=== PATIENT | male | born 1960 | race Caucasian/White ===

== ENCOUNTER 2019-06-16 11:48 | Inpatient (IN) | payer BC, OTHER ==
[~2019-06-16] VITALS: Ht 175.3 cm; Wt 88.9 kg
[2019-06-16 12:09] VITALS: BP 137/95
--- NOTE | 2019-06-16 13:20 | NUR ---
ASSESSMENT: CM REVIEWED CHART AND MET WITH PATIENT AT THE BEDSIDE ALONG WITH HIS . PHYSICIAN CONTACTED CM PATIENT AND HAD QUESTIONS ABOUT INSURANCE. THEY HAD QUESTIONS ABOUT INSURANCE STATING PATIENT IS NEEDING A CT AND HE IS WORRIED HE WILL HAVE A LARGE BILL. CM REACHED OUT TO SHAGUFTA AT [facility] [phone] TO CLARIFY IF PATIENT WOULD BE CHARGED. PT STATED HE HAS MET HIS MAX OUT OF POCKET, SO SH[place] STATED PATIENT SHOULD NOT BE CHARGED IF PATIENT HAS MET THAT AND IT WILL BE COVERED. SHAGUFTA STATED TO GIVE PT HER NUMBER WITH ANY QUESTIONS. CM PROVIDED THIS TO PATIENT AND HIS . HE REPORTS HE LIVES IN AN APT WITH HIS DURING THE WEEK HERE AND THEN THEY HAVE A HOUSE THEY GO TO ON THE WEEKEND IN [place]. PT REPORTS THEY HAVE NO STEPS THEY HAVE TO USE TO GET IN THE APT. PT REPORTS HE AMBULATES INDEPENDENTLY. PT STATES HE IS INDEPENDENT WITH ADLS. PT REPORTS NO HX OF HH OR SNF. CM WILL CONTINUE TO FOLLOW TO ASSIST NEEDED.
[2019-06-16] MEDS ORDERED: ASPIR 8181 M1 PO (15:18)
[2019-06-16] MEDS ORDERED: CRESTOR10 MG PO (15:19)
[2019-06-16] MEDS ORDERED: AVAPRO 150 MG150 M1 PO ×2 (15:21→21:39)
[2019-06-16] MEDS ORDERED: VITAMIN B-121000 MC2 SUBLING (15:21)
[2019-06-16 15:41] VITALS: BP 126/80
[2019-06-16] MEDS ORDERED: XARELTO20 MG PO ×2 (15:56→21:38)
[2019-06-16] MEDS ORDERED: ZOFRAN8 MG PO (15:59)
[2019-06-16] MEDS ORDERED: NORCO 5-325 TA1 EAC2 PO (16:03)
[2019-06-16] MEDS ORDERED: TYLENOL325 M1 PO (16:05)
[2019-06-16 17:00] LABS: HEMATOCRIT 38.3 % (42.0-52.0); HEMOGLOBIN 12.6 gm/dL (14.0-18.0); MCH 30.5 pg (26.0-34.0); MCHC 33.1 g/dL (28.0-37.0); MCV 92.2 fL (80.0-100.0); RBC 4.15 mil/uL (4.50-6.00); RDW 13.1 % (10.5-14.5); WBC 10.9 thou/uL (4.0-11.0)
[2019-06-16 17:13] LABS: ALBUMIN 2.3 g/dL (3.4-5.0); CALCIUM 9.1 mg/dL (8.5-10.1); MAGNESIUM 1.9 mg/dL (1.8-2.4); POTASSIUM 4.1 mmol/L (3.5-5.1); TOTAL BILIRUBIN 0.5 mg/dL (<0.1-1.0); TOTAL PROTEIN 7.7 g/dL (6.4-8.2)
[2019-06-16 17:40] LABS: TSH 2.039 uIU/mL (0.358-3.740)
[2019-06-16 19:08] VITALS: BP 120/80
--- NOTE | 2019-06-16 19:52 | NUR ---
[age] OLD MALE ADMITTED TO WEST ROOM [address]ARE OF [address] AYALA. PT WAS A DIRECT ADMIT DUE TO C/O FEVER ON AND OFF FOR TEN DAYS. NO FEVER ON ADMIT. PT ALERT AND ORIENTED TIMES FOUR. VSS, SR ON TELE, IVF INFUSING PER ORDER. PT C/O PAIN RIGHT THIGH PRN PAIN MEDICATIONS GIVEN WITH GOOD RELEIF. PT TOLERATES MED AND MEALS. PT UP AB THAIS WITH STEADY GAIT. AT BEDSIDE. WILL CONTINUE TO MONITOR.
[2019-06-16] MEDS ORDERED: NORCO 10-325 T1 EACH PO (21:36)
[2019-06-16] MEDS ORDERED: LIDODERM1 EACH TOP (21:37)
[2019-06-16] MEDS ORDERED: ASA81BEC PO (21:41)
[2019-06-16] MEDS ORDERED: ROSUVASTATIN CA10 MG PO (21:41)
[2019-06-16] MEDS ORDERED: B-12 DOTS500 MCG PO (21:43)
[2019-06-17 04:29] VITALS: BP 113/76
[2019-06-17 05:08] LABS: GLYCOHEMOGLOBIN (HGB A1C) 7.1 % (4.8-5.6)
[2019-06-17 05:48] LABS: HEMATOCRIT 37.1 % (42.0-52.0); HEMOGLOBIN 12.4 gm/dL (14.0-18.0); MCH 30.9 pg (26.0-34.0); MCHC 33.4 g/dL (28.0-37.0); MCV 92.5 fL (80.0-100.0); RBC 4.01 mil/uL (4.50-6.00); RDW 13.1 % (10.5-14.5); WBC 9.4 thou/uL (4.0-11.0)
[2019-06-17 06:01] LABS: CALCIUM 9.2 mg/dL (8.5-10.1); MAGNESIUM 1.9 mg/dL (1.8-2.4); POTASSIUM 4.5 mmol/L (3.5-5.1)
--- NOTE | 2019-06-17 07:34 | NUR ---
patient is alert and oriented. patient is up ad rosario. patient is room air. temp treated with medication. patient is resting comfortably in bed. wcm. patient is progressing to goals
[2019-06-17 07:49] VITALS: BP 102/70
[2019-06-17 11:22] VITALS: BP 111/75
[2019-06-17 11:42] LABS: URINE BILIRUBIN NEGATIVE (Negative); URINE BLOOD NEGATIVE (Negative); URINE CLARITY CLEAR; URINE COLOR YELLOW; URINE GLUCOSE-RANDOM* NEGATIVE (Negative); URINE KETONES NEGATIVE (Negative); URINE LEUKOCYTES-REFLEX NEGATIVE (Negative); URINE NITRITE-REFLEX NEGATIVE (Negative); URINE PROTEIN (DIPSTICK) NEGATIVE (Negative); URINE UROBILINOGEN 0.2 E.U./dl (0.2-1.0)
[2019-06-17 15:53] VITALS: BP 110/58
[2019-06-17 19:50] VITALS: BP 121/82
--- NOTE | 2019-06-17 21:04 | HC ---
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 HISTORY OF PRESENT ILLNESS: A 58-year-old previously healthy diagnosed with DVT in December of this year, followed by mass in his right medial thigh. In March of this year, biopsy positive for spindle cell sarcoma. Started on preoperative radiation therapy 4 weeks ago. Over the last 10 days, he has had low-grade fever associated with night sweats. The patient has had a 10-day history of fever associated with night sweats, occasional chills. The patient has had cough for about 6 months. This has been nonproductive with occasional clear sputum. No hemoptysis, no pleuritic chest pain. No shortness of breath. He does have some postnasal drip. He has had mild nausea. No rashes, decubiti other than irritation from his radiation therapy involving the upper thigh and perianal region. He has had no adenopathy. Denies any headaches, pharyngitis symptoms, chest pain, palpitations, abdominal pain, diarrhea, dysuria, hematuria, flank pain, bleeding episodes despite being on Xarelto. He has had a previous left kidney stone, which obstructed his left ureter last year. During his evaluation, CT scan was performed and did note several nodules in his lower lung. These were evident again in March. He has lost about 25 pounds of weight. No HIV risk factors. No tuberculosis exposure. 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 He is . REVIEW OF SYSTEMS: A 10-point review of system was negative other than what has been described above. ALLERGIES: PENICILLIN, although does tolerate amoxicillin without reaction. MEDICATIONS: Aspirin, Crestor, vitamin B12, Avapro, Xarelto, Zofran, [place]. Since admission, he has been on vancomycin and cefepime. PAST MEDICAL HISTORY: Hypertension, nephrolithiasis, DVT, sarcoma right thigh. [address] [address] CONSULTATION Name: MARIAN TRISTAN Room #: 357-P [facility] IN [facility]#: [id number] Admission: 06/16/19 Attend Phys: Uday Thomas MD Discharge: Date of : 62 Report #: [id number] FAMILY HISTORY: Noncontributory. SOCIAL HISTORY: Nonsmoker, no significant alcohol intake. Other issues as noted above. PHYSICAL EXAMINATION: VITAL SIGNS: Maximum temperature was 38.6, hemodynamically stable. GENERAL: He is alert and cooperative, ambulatory. Mental status was normal. Mood normal. SKIN: Without rash except for what will be described in his extremity examination. No palpable adenopathy. EYES: Without scleral icterus. MOUTH: Without mucositis. NECK: Supple. No thyromegaly or mass. LUNGS: Clear. HEART: Regular, without murmur. ABDOMEN: Soft, nontender, no hepatosplenomegaly or mass. No spinal tenderness, no CVA tenderness. GENITOURINARY: External genitalia unremarkable. Perianal examination with dermatitis. RECTAL: Mildly enlarged prostate. No masses or fluctuance identified. EXTREMITIES: With mass in his right thigh. No associated erythema, cellulitis lesion. NEUROLOGIC: Cranial nerves intact. Strength in his upper and lower extremities normal. Deep tendon reflexes normal. Sensation to touch upper and lower extremities within normal limits. LABORATORY STUDIES: Lactate 0.9. Procalcitonin 0.2. Hemoglobin 12.6, WBC 10.9, platelet count 423,000. Sodium 131, potassium 4.1, bicarbonate 29, creatinine 1, AST 67, ALT 156, alkaline phosphatase 152, bilirubin 0.5, lipase 178. TSH 2. CT scan of the chest with contrast, numerous pulmonary nodules throughout both lungs, most suggestive of pulmonary metastatic disease. No bony changes or adenopathy. CT scan of the abdomen and pelvis was unremarkable. Blood cultures are pending. IMPRESSION: Fever in the setting of right thigh sarcoma and bilateral pulmonary nodules with cough, weight loss. Additional findings include transaminase elevation. Source of fever I would suspect pulmonary over perianal region over hepatitis concerning that we may be dealing with metastatic cancer to the lung. Other considerations would be granulomatous disease. He has been on no chemotherapy to making neutropenic or otherwise immunosuppressed other than having cancer and beginning radiation therapy. Causes of hepatitis would include drug versus viral etiology. No evidence of metastatic disease or granulomatous changes seen [facility] [address] [place] [address] CONSULTATION Name: MARIAN TRISTAN Room #: 357-P [facility] IN Fitz.#: [id number] Admission: 06/16/19 Attend Phys: Uday Thomas MD Discharge: Date of : 62 Report #: [id number] scan. Would doubt the thigh radiation would be causing this high fever without other changes in his leg. RECOMMENDATIONS: We will continue antibiotic coverage including cefepime and metronidazole considering the perianal changes. No evidence of MRSA infection evident at this point. Would check for fungal and microbacterial etiologies as well as a community-acquired pneumonitis. Viral studies regarding his hepatitis. We will compare CT scan of his chest. May need bronchoscopy to further delineate this process. <ELECTRONICALLY SIGNED> By: Alejandro Live MD 06/17/19 [id number] Alejandro Live MD /nt
[2019-06-18 03:11] VITALS: BP 128/72
--- NOTE | 2019-06-18 03:40 | NUR ---
PATIENT IS ALERT AND ORIENTED. PATIENT IS UP AD THAIS. PATIENT HAS DVT TO RT LEG. PENDING POSSIBLE BIOPSY. PATIENT IS ROOMAIR NSR ON TELE. PATIENT IS CONTIENT. PATIENTS PAIN IS TREATED FEVERS BETTER TODAY. PATIENT IS RESTING IN BED. M.
[2019-06-18 07:11] VITALS: BP 125/82
[2019-06-18 08:47] LABS: HEMATOCRIT 35.2 % (42.0-52.0); HEMOGLOBIN 11.7 gm/dL (14.0-18.0); MCH 30.3 pg (26.0-34.0); MCHC 33.2 g/dL (28.0-37.0); MCV 91.4 fL (80.0-100.0); RBC 3.85 mil/uL (4.50-6.00); WBC 9.2 thou/uL (4.0-11.0)
[2019-06-18 08:56] LABS: CALCIUM 9.4 mg/dL (8.5-10.1); MAGNESIUM 1.6 mg/dL (1.8-2.4); POTASSIUM 3.8 mmol/L (3.5-5.1)
[2019-06-18 10:07] LABS: HAV IgM AB (ANTI-HAV IgM) Negative (Negative); HEPATITIS B SURFACE AG Negative (Negative); HEPATITIS C VIRUS AB <0.1 (0.0-0.9); HIV ANTIBODY Non Reactive (Non Reactive)
--- NOTE | 2019-06-18 12:46 | NUR ---
on-going assessment: CM REVIEWED CHART. PT CONTINUES TO HAVE A FEVER. PT REMAINS ON IV ANBS AND WILL LIKELY NEED BIOPSY PRIOR TO DISCHARGE. CM WILL CONTINUE TO FOLLOW TO ASSIST NEEDED.
[2019-06-18 15:07] VITALS: BP 125/73
--- NOTE | 2019-06-18 17:03 | NUR ---
PATIENT AMBULATING IN THE HALLS WITH . TEMP UP TO 100.4, TYLENOL GIVEN AND NOW 99.1. PAIN CONTROLLED WITH PAIN MANAGEMENT REGIME. PATIENT AND UPDATED TO THE POC AND REASSURNACE GIVEN.
[2019-06-18 19:20] VITALS: BP 133/76
[2019-06-18 19:20] LABS: HEMATOCRIT 40.6 % (42.0-52.0); HEMOGLOBIN 13.4 gm/dL (14.0-18.0); MCH 30.6 pg (26.0-34.0); MCHC 33.1 g/dL (28.0-37.0); MCV 92.6 fL (80.0-100.0); RBC 4.39 mil/uL (4.50-6.00); WBC 9.9 thou/uL (4.0-11.0)
[2019-06-18 19:24] LABS: INR 1.2; PROTIME 12.7 Seconds (9.3-11.4)
[2019-06-19 03:15] VITALS: BP 114/82
[2019-06-19 03:41] LABS: HEMATOCRIT 36.7 % (42.0-52.0); HEMOGLOBIN 11.8 gm/dL (14.0-18.0); MCH 29.9 pg (26.0-34.0); MCHC 32.1 g/dL (28.0-37.0); MCV 93.1 fL (80.0-100.0); RBC 3.95 mil/uL (4.50-6.00); RDW 13.1 % (10.5-14.5); WBC 9.1 thou/uL (4.0-11.0)
[2019-06-19 03:52] LABS: CALCIUM 9.1 mg/dL (8.5-10.1); CREATININE 0.9 mg/dL (0.7-1.3); MAGNESIUM 1.8 mg/dL (1.8-2.4); POTASSIUM 4.4 mmol/L (3.5-5.1)
--- NOTE | 2019-06-19 05:56 | NUR ---
PT A/OX4 AND UP AD THAIS TAKING IV POLE ON LAPS AROUND UNIT. FOLLOWING POC WITH HEPARIN GTT AND IVPB. PAIN AND NAUSEA CONTROL. PT RIGHT UPPER THIGH HAS SOME LYMPHEDEMA AND IS HOT TO THE TOUCH. PT ROOMING IN. PT HAS NO OTHER COMPLAINTS. HOURLY ROUNDING.
[2019-06-19 07:03] VITALS: BP 108/68
--- NOTE | 2019-06-19 10:22 | 2DMMODE ---
[facility] [place] [address] 2 D/M-MODE ECHOCARDIOGRAM Name: MARIAN TRISTAN Room #: 357-P [facility] IN ..#: [id number] Admission: 06/16/19 Attend Phys: Uday Thomas, Discharge: Date of : 62 Report #: [id number] THIS REPORT FOR: //name// APPROVED REPORT Study performed: 06/19/2019 09:42:04 EXAM: Comprehensive 2D, Doppler, and color-flow Echocardiogram Patient Location: Echo lab Room #: [facility] Status: routine BSA: 2.05 HR: 92 bpm BP: 108/68 mmHg Rhythm: NSR Other Information Study Quality: Good Indications Fever, question septic emboli. Hx: Cancer, HTN, HLP. 2D Dimensions RVDd: 34.22 mm IVSd: 13.28 (7-11mm) LVOT Diam: 21.16 (18-24mm) LVDd: 37.48 mm PWd: 11.34 (7-11mm) Ascending Ao: 35.56 (22-36mm) LVDs: 26.46 (25-40mm) Aortic Root: 34.97 mm Volumes Left Atrial Volume (Systole) Single Plane 4CH: 34.48 mL Aortic Valve AoV Peak Guero.: 1.75 m/s AO Peak Gr.: 12.18 mmHg LVOT Max P.93 mmHg LVOT Max V: 1.58 m/s JW Vmax: 3.17 cm2 Mitral Valve E/A Ratio: 0.8 MV Decel. Time: 225.27 ms MV E Max Guero.: 0.70 m/s [facility] [address] [place] [address] 2 D/M-MODE ECHOCARDIOGRAM Name: MARIAN TRISTAN Jason Room #: 357-P [facility]#: [id number] Admission: 06/16/19 Attend Phys: Uday Thoams, Discharge: Date of : 62 Report #: [id number] MV A Guero.: 0.84 m/s MV PHT: 65.33 ms IVRT: 76.12 ms Pulmonary Valve PV Peak Guero.: 1.09 m/s PV Peak Gr.: 4.71 mmHg Pulmonary Vein P Vein S: 0.88 m/s P Vein A: 0.54 m/s P Vein D: 0.73 m/s P Vein A Dur.: 96.9 msec P Vein S/D Ratio: 1.21 Tricuspid Valve RAP Estimate: 5.00 mmHg Left Ventricle The left ventricle is normal size. There is normal LV segmental wall motion. Mild basal septal hypertrophy is present. Left ventricular systolic function is normal. LVEF is 55-60%. Mild diastolic dysfunction is present (impaired relaxation pattern). Right Ventricle The right ventricle is normal size. The right ventricular systolic function is normal. Atria The left atrium size is normal. The right atrium size is normal. Aortic Valve The aortic valve is normal in structure; mildly calcified. Trace aortic regurgitation. There is no aortic valvular stenosis. Mitral Valve The mitral valve is normal in structure. Mild mitral regurgitation. Tricuspid Valve The tricuspid valve is normal in structure. There is no tricuspid valve regurgitation noted. Unable to assess PA pressure. Pulmonic Valve The pulmonary valve is normal in structure. Trace pulmonic regurgitation. Great Vessels [facility] [address] [place] [address] 2 D/M-MODE ECHOCARDIOGRAM Name: MARIAN TRISTAN Room #: 357-P [facility] IN .R.#: [id number] Admission: 06/16/19 Attend Phys: Uday Thomas, Discharge: Date of : 62 Report #: [id number] The aortic root is normal in size. The ascending aorta is normal in size. IVC is normal in size and collapses >50% with inspiration. Pericardium There is no pericardial effusion. <Conclusion> The left ventricle is normal size. LVEF is 55-60%. The aortic valve is normal in structure; mildly calcified. Trace aortic regurgitation. The mitral valve is normal in structure. Mild mitral regurgitation. The tricuspid valve is normal in structure. There is no tricuspid valve regurgitation noted. Unable to assess PA pressure. The pulmonary valve is normal in structure. Trace pulmonic regurgitation. There is no pericardial effusion. <ELECTRONICALLY SIGNED> By: Thiago Yarbrough MD 06/19/19 1022 1022 1022 Thiago Yarbrough MD /INF
--- NOTE | 2019-06-19 10:55 | NUR ---
PATIENT FEELING BETTER TODAY. DENIED NAUSEA. ATE APPROXIMATELY 1/2 OF BREAKFAST. US OF LE'S AND ECHO COMPLETED THIS MORNING. VERY PLEASANT AND COOPERATIVE. PAIN WELL CONTROLLED. TUMOR TO RT THIGH FIRM, LARGE. NO REDNESS OR WARMTH. PATIENT UP AMBULATING IN HALLS INDEPENDENTLY AND TOLERATING WELL. FAMILY AT BEDSIDE. HEPARIN GTT PROTOCOL CONTINUES. MONITORING CLOSELY.
[2019-06-19 14:55] VITALS: BP 120/80
[2019-06-19 18:06] LABS: HISTOPLASMA MYCELIAL-ID Negative (Negative)
[2019-06-19 19:32] VITALS: BP 123/77
[2019-06-19 21:10] LABS: HISTOPLASMA MYCELIAL-CF Negative (Neg:<1:2)
[2019-06-20 03:40] VITALS: BP 115/79
--- NOTE | 2019-06-20 06:22 | NUR ---
PT UP AD THAIS. PT STILL STATES HE IS HAVING LOOSE STOOLS. TRYING TO CONTROL FEVER WAS AN UP AND DOWN PROCESS. POC WITH IVPB AND HEPARIN GTT. PAIN MANAGEABLE OVER SHIFT. HOURLY ROUNDING.
[2019-06-20 07:14] VITALS: BP 99/64
[2019-06-20 07:35] LABS: HEMATOCRIT 34.7 % (42.0-52.0); HEMOGLOBIN 11.4 gm/dL (14.0-18.0); MCH 30.3 pg (26.0-34.0); MCHC 32.7 g/dL (28.0-37.0); MCV 92.5 fL (80.0-100.0); RBC 3.75 mil/uL (4.50-6.00); RDW 13.3 % (10.5-14.5); WBC 9.4 thou/uL (4.0-11.0)
[2019-06-20 07:43] LABS: CALCIUM 9.4 mg/dL (8.5-10.1); CREATININE 0.8 mg/dL (0.7-1.3); MAGNESIUM 1.7 mg/dL (1.8-2.4); POTASSIUM 3.8 mmol/L (3.5-5.1)
[2019-06-20 15:07] VITALS: BP 113/66
[2019-06-20 19:15] VITALS: BP 130/78
[2019-06-21 04:42] VITALS: BP 114/74
--- NOTE | 2019-06-21 06:16 | NUR ---
FOLLOWING POC WITH HEPARIN GTT WHICH PT WAS AT THERAPEUTIC LEVEL AT LAST LAB DRAW. IVPB ANTIBIOTICS POC IN FORCE. FEVER MANAGEMENT WITH TYLENOL. VSS, TELE SHOWS NSR EXCEPT WHEN PT IS AMBULATING AND REFLECTS ST OF 120. 2 COMPLETE GOWN CHANGES OVER THE SHIFT. HOURLY ROUNDING.
[2019-06-21 06:58] VITALS: BP 99/86
[2019-06-21 08:09] LABS: HEMATOCRIT 39.5 % (42.0-52.0); MCH 30.5 pg (26.0-34.0); MCHC 32.9 g/dL (28.0-37.0); MCV 92.9 fL (80.0-100.0); RBC 4.25 mil/uL (4.50-6.00); RDW 13.2 % (10.5-14.5); WBC 10.7 thou/uL (4.0-11.0)
[2019-06-21 15:14] VITALS: BP 114/72
[2019-06-21 17:09] LABS: ADENOVIRUS Negative (Negative); INFLUENZA A Negative (Negative); INFLUENZA B Negative (Negative); METAPNEUMOVIRUS Negative (Negative); PARAINFLUENZA 1 Negative (Negative); PARAINFLUENZA 2 Negative (Negative); PARAINFLUENZA 3 Negative (Negative); RHINOVIRUS Negative (Negative); RSV A Negative (Negative); RSV B Negative (Negative)
[2019-06-21 19:55] VITALS: BP 132/90
--- NOTE | 2019-06-21 19:59 | NUR ---
pt is A&OX3, PT's aptt is 66.0, no dose change today, pt is continuing Heparin drip at 24.97 units/kg/hr for RLE DVT, pt is continuing iv abx and pain management, pt's vs are stable, pt does not have SOB and s/s of bleeding, pt gets up to walk in hallway for 3 times, pt may have CT lung Biopsy tomorrow, dr has order to hold heprin drip brefore procedure. pt has signed consent.
[2019-06-21 23:24] VITALS: BP 117/77
--- NOTE | 2019-06-22 02:45 | NUR ---
Patient advised his right leg was hurting. He as administered tylenol and guaifenesin with codeine. Upon reassessment, patient was resting comfortably.
[2019-06-22 05:34] LABS: HEMATOCRIT 36.7 % (42.0-52.0); HEMOGLOBIN 12.1 gm/dL (14.0-18.0); MCH 30.3 pg (26.0-34.0); MCHC 32.9 g/dL (28.0-37.0); MCV 92.2 fL (80.0-100.0); RBC 3.98 mil/uL (4.50-6.00); RDW 13.3 % (10.5-14.5); WBC 10.5 thou/uL (4.0-11.0)
[2019-06-22 05:42] LABS: CALCIUM 9.7 mg/dL (8.5-10.1); POTASSIUM 4.7 mmol/L (3.5-5.1)
[2019-06-22 05:52] LABS: APTT 50.5 Seconds (24.5-32.8); INR 1.2; PROTIME 12.3 Seconds (9.3-11.4)
[2019-06-22 06:10] VITALS: BP 124/79
[2019-06-22 07:13] VITALS: BP 120/86
--- NOTE | 2019-06-22 13:48 | NUR ---
ON-GOING ASSESSMENT: CM REVIEWED CHART AND MET WITH PATIENT AT THE BEDSIDE. PT IS GOING TO GO HOME TODAY AND DENIES HAVING NEEDS FROM CM.
[2019-06-22] MEDS ORDERED: GUAIFEN-CODEINE10 ML PO (14:34)
[2019-06-22] MEDS ORDERED: LEVAQUIN 500 M500 M3 PO (15:06)
[2019-06-22] MEDS ORDERED: ATIVAN1 M1 PO (15:07)
[2019-06-22 15:10] VITALS: BP 140/96
[2019-06-22 15:24] VITALS: BP 120/86
[2019-06-22 15:55] VITALS: BP 143/93
[2019-06-22 17:13] VITALS: BP 115/79
--- NOTE | 2019-06-22 19:27 | NUR ---
pt's Lung biopsy has cancel today, pt's vs are stable, pt denies n/v and sob, pt was D/C to home at 1730pm, RN had giving DC teaching to pt and pt's , they unstander well.
== END 2019-06-22 17:44 | disposition home or self-care (01) | DRG 542 ==
LOC: 3W 11:48
PROVIDERS: Hospitalist; Internal Medicine Pulmonary Disease; Specialist; ADMIT Internal Medicine
DX: C49.21 Malignant neoplasm of connective and soft tissue of right lower limb, including hip (principal); E43 Unspecified severe protein-calorie malnutrition; E87.1 Hypo-osmolality and hyponatremia; I10 Essential (primary) hypertension; E87.8 Other disorders of electrolyte and fluid balance, not elsewhere classified; R74.0 Nonspecific elevation of levels of transaminase and lactic acid dehydrogenase [LDH]; E78.5 Hyperlipidemia, unspecified; R91.1 Solitary pulmonary nodule; Z88.1 Allergy status to other antibiotic agents; Z87.442 Personal history of urinary calculi; Z86.718 Personal history of other venous thrombosis and embolism; Z68.28 Body mass index [BMI] 28.0-28.9, adult; Z79.82 Long term (current) use of aspirin; Z79.899 Other long term (current) drug therapy
CPT/HCPCS: 10879

== ENCOUNTER → 2019-06-24 | Outpatient (CLI) | payer BC, OTHER ==
[~2019-06-24] MED LIST: ASA81BEC PO; ASPIR 8181 M1 PO; ATIVAN1 M1 PO; AVAPRO 150 MG150 M1 PO; B-12 DOTS500 MCG PO; CRESTOR10 MG PO; GUAIFEN-CODEINE10 ML PO; LEVAQUIN 500 M500 M3 PO; LIDODERM1 EACH TOP; NORCO 10-325 T1 EACH PO; NORCO 5-325 TA1 EAC2 PO; ROSUVASTATIN CA10 MG PO; TYLENOL325 M1 PO; VITAMIN B-121000 MC2 SUBLING; XARELTO20 MG PO; ZOFRAN8 MG PO
== END ==
LOC: PET 11:53
DX: R91.1 Solitary pulmonary nodule (principal); C79.89 Secondary malignant neoplasm of other specified sites